=== PATIENT | female | born 1965 | race Caucasian/White ===

== ENCOUNTER → 2017-02-23 | Outpatient (CLI) | payer BC ==
--- NOTE | 2017-02-23 19:15 | US ---
EXAMINATION TYPE: US pelvis complete transvag DATE OF EXAM: 02/23/2017 COMPARISON: NONE CLINICAL HISTORY: Abnormal Uterine Bleeding N93.9. Ablation 12 years ago, menses started 3 months ago TECHNIQUE: Transvaginal (TV) and Transabdominal (TA) Date of LMP: unknown EXAM MEASUREMENTS: Uterus: 8.8 x 5.3 x 5.2 cm Endometrial Stripe: 0.5 cm Right Ovary: unable to visualize Left Ovary: 4.6 x 3.4 x 4.2 cm 1. Uterus: Anteverted heterogeneous, multiple Nabothian cysts, anechoic areas noted with largest = 2.1cm, complex areas noted with largest = 1.9cm 2. Endometrium: limited evaluation due to heterogeneous uterine tissue 3. Right Ovary: Obscured by overlying bowel gas 4. Left Ovary: septated cystic area = 3.9 x 3.3 x 2.9cm 5. Bilateral Adnexa: appears wnl 6. Posterior cul-de-sac: wnl Left ovary is abnormal with septated 3.9 cm cystic lesion. Uterus is markedly heterogeneous with sugg estion of underlying fibroids. Some fluid in the endometrial canal is felt present. No suspicious end ometrial thickening is seen. There is central endometrium there is 8 x 7 mm hyperechoic round area on image 44 could reflect polyp. IMPRESSION: 1. Suspicious 3.9 cm septated cyst or cystic lesion, cystic neoplasm cannot be excluded. Consider lab correlation. Consider pelvic MRI to further evaluate and characterize. Consider gynecology oncology consultation. 2. Markedly heterogeneous uterus, suspect intrauterine fibroids. This could also be further investiga walter or confirmed with pelvic MRI.
== END | disposition home or self-care (01) ==
LOC: RADUSWWP 15:34
PROVIDERS: ATTEND Family Medicine
DX: N93.9 Abnormal uterine and vaginal bleeding, unspecified (principal)
CPT/HCPCS: 76830; 76856

== ENCOUNTER → 2017-03-10 | Outpatient (CLI) | payer BC ==
[2017-03-17 14:25] LABS: Mis test requested (Blood) OVA-1
== END | disposition home or self-care (01) ==
LOC: MMGSC 09:24
PROVIDERS: ATTEND Obstetrics & Gynecology
DX: N85.8 Other specified noninflammatory disorders of uterus (principal)
CPT/HCPCS: 36415; 81503; 88305

== ENCOUNTER → 2018-01-21 | Outpatient (CLI) | payer BC ==
--- NOTE | 2018-01-25 12:15 | MM ---
Reason for exam: screening (asymptomatic). Last mammogram was performed 2 years and 7 months ago. History: Cancelled Left US Needle Biopsy of the left breast, January 27, 2007. Took hormonal contraceptives for 2 years beginning at age 34. Physical Findings: A clinical breast exam by your physician is recommended on an annual basis and results should be correlated with mammographic findings. MG 3D Screening Mammo W/Cad Bilateral CC and MLO view(s) were taken. Prior study comparison: June 19, 2015, bilateral MG 3d screening mammo w/cad. December 16, 2006, CAD bilateral diagnostic mammogram. The breast tissue is extremely dense which could obscure a lesion on mammography. No significant changes when compared with prior studies. ASSESSMENT: Negative, BI-RAD 1 RECOMMENDATION: Routine screening mammogram of both breasts in 1 year.
== END | disposition home or self-care (01) ==
LOC: RADMAMWWP 07:59
PROVIDERS: ATTEND Family Medicine
DX: Z12.31 Encounter for screening mammogram for malignant neoplasm of breast (principal)
CPT/HCPCS: 77063; 77067

== ENCOUNTER → 2019-03-02 | Outpatient (CLI) | payer BC ==
--- NOTE | 2019-03-06 10:24 | MM ---
Reason for exam: screening (asymptomatic). Last mammogram was performed 1 year and 1 month ago. History: Patient is postmenopausal. Cancelled Left US Needle Biopsy of the left breast, January 27, 2007. Took hormonal contraceptives for 2 years beginning at age 34. Took estrogen for 1 year beginning at age 52. Took progesterone for 1 year beginning at age 52. Physical Findings: A clinical breast exam by your physician is recommended on an annual basis and results should be correlated with mammographic findings. MG 3D Screening Mammo W/Cad Bilateral CC and MLO view(s) were taken. Prior study comparison: January 21, 2018, bilateral MG 3d screening mammo w/cad. June 19, 2015, bilateral MG 3d screening mammo w/cad. The breast tissue is heterogeneously dense. This may lower the sensitivity of mammography. No significant changes when compared with prior studies. ASSESSMENT: Benign, BI-RAD 2 RECOMMENDATION: Routine screening mammogram of both breasts in 1 year.
== END | disposition home or self-care (01) ==
LOC: RADMAMWWP 13:47
PROVIDERS: ATTEND Obstetrics & Gynecology
DX: Z12.31 Encounter for screening mammogram for malignant neoplasm of breast (principal)
CPT/HCPCS: 77063; 77067

== ENCOUNTER → 2020-09-04 | Outpatient (CLI) | payer BC ==
[2020-09-05 02:39] LABS: Follicle Stimulating Hormone 17.9 mIU/mL
== END | disposition home or self-care (01) ==
LOC: LABWHC1 14:34
PROVIDERS: ATTEND Obstetrics & Gynecology
DX: N95.1 Menopausal and female climacteric states (principal); R53.83 Other fatigue
CPT/HCPCS: 36415; 82670; 83001; 84144; 84403

== ENCOUNTER → 2020-10-07 | Outpatient (CLI) | payer BC ==
--- NOTE | 2020-10-08 12:04 | MM ---
Reason for exam: screening (asymptomatic). Last mammogram was performed 1 year and 7 months ago. History: Patient is postmenopausal. Cancelled Left US Needle Biopsy of the left breast, January 27, 2007. Took hormonal contraceptives for 2 years beginning at age 34. Taking estrogen for 1 year beginning at age 52. Taking progesterone for 1 year beginning at age 52. Taking other hormone for 1 year. Physical Findings: A clinical breast exam by your physician is recommended on an annual basis and results should be correlated with mammographic findings. MG 3D Screening Mammo W/Cad Bilateral CC and MLO view(s) were taken. Prior study comparison: March 02, 2019, bilateral MG 3d screening mammo w/cad. January 21, 2018, bilateral MG 3d screening mammo w/cad. The breast tissue is extremely dense which could obscure a lesion on mammography. No significant changes when compared with prior studies. ASSESSMENT: Benign, BI-RAD 2 RECOMMENDATION: Routine screening mammogram of both breasts in 1 year.
== END | disposition home or self-care (01) ==
LOC: RADMAMWWP 15:37
PROVIDERS: ATTEND Obstetrics & Gynecology
DX: Z12.31 Encounter for screening mammogram for malignant neoplasm of breast (principal); Z78.0 Asymptomatic menopausal state
CPT/HCPCS: 77063; 77067

== ENCOUNTER 2021-04-22 08:48 | Day surgery (SDC) | payer BC ==
[2021-04-18 11:34] VITALS: BMI 20.7
[~2021-04-22 08:48] MED LIST: LACTATED RINGERS 1,000 ML IV SCH; LIDOCAINE 1% (10MG/ML) FOR IV START INTRADERMA PRN
[2021-04-22 09:35] VITALS: RESP 16; TEMP 98.8
[2021-04-22] MEDS ORDERED: ONDANSETRON 4 MG/2 ML VIAL ONE (09:38)
[2021-04-22] MEDS ORDERED: DEXAMETHASONE SOD PHOSPHATE 4 MG/ML 1 ML VIAL IV ONE (09:40)
[2021-04-22] MEDS ORDERED: LIDOCAINE 1% INJ 10MG/ML (20 ML MDV) ONE (09:42)
[2021-04-22] MEDS ORDERED: PROPOFOL 10 MG/ML 20 ML VIAL IV ONE (09:42)
--- NOTE | 2021-04-22 09:46 | P.GSHP ---
History of Present Illness H&P Date: 04/22/21 Chief Complaint: Colon cancer screening Patient here today for colonoscopy. Last colonoscopy 5 years ago. Family history of colon cancer in her father and colon polyps in her mother. No bowel complaints. Past Medical History Additional Past Medical History / Comment(s): Hx. of Postmenopausal symptoms. History of Any Multi-Drug Resistant Organisms: None Reported Past Surgical History: Hernia Repair, Tonsillectomy, Tubal Ligation, Uterine Ablation Additional Past Surgical History / Comment(s): At age 6 hernia, Kidney donar, estrogen pellet insertion. Past Anesthesia/Blood Transfusion Reactions: Postoperative Nausea & Vomiting (PONV) Smoking Status: Never smoker - Past Family History Mother Family Medical History: No Reported History Father Family Medical History: Cancer Additional Family Medical History / Comment(s): Colon Medications and Allergies Home Medications Medication Instructions Recorded Confirmed Type Estrogen Pellet(Unknown Dose) 1 capsule ID Q3M 04/18/21 04/18/21 History Multivitamin [Multivitamins Adult 1 each PO DAILY 04/18/21 04/18/21 History Gummies] Progesterone, Micronized 200 mg PO HS 04/18/21 04/18/21 History [Progesterone] Allergies Allergy/AdvReac Type Severity Reaction Status Date / Time amoxicillin Allergy Rash/Hives Verified 04/22/21 09:17 cephalexin [From Keflex] Allergy Rash/Hives Verified 04/22/21 09:17 Surgical - Exam Vital Signs Temp Pulse Resp BP Pulse Ox 98.8 F 60 16 122/69 94 L 04/22/21 09:25 04/22/21 09:25 04/22/21 09:25 04/22/21 09:25 04/22/21 09:25 Physical exam: General: Well-developed, well-nourished HEENT: Normocephalic, sclerae nonicteric Abdomen: Nontender, nondistended Extremities: No edema Neuro: Alert and oriented Assessment and Plan (1) Colon cancer screening Narrative/Plan: Will proceed with colonoscopy at this time Current Visit: Yes Status: Acute Code(s): Z12.11 - ENCOUNTER FOR SCREENING FOR MALIGNANT NEOPLASM OF COLON SNOMED Code(s): 685050030
--- NOTE | 2021-04-22 10:15 | P.PCN ---
Date of Procedure: 04/22/21 Procedure(s) Performed: PREOPERATIVE DIAGNOSIS: Colon cancer screening POSTOPERATIVE DIAGNOSIS: Tortuous colon otherwise normal PROCEDURE: Colonoscopy ANESTHESIA: MAC SURGEON: Sixto Herman M.D. SPECIMENS: None ENDOSCOPIC PROCEDURE: The patient was placed on the endoscopy table in the left decubitus position. The Olympus colonoscope was inserted into the anus and passed under direct visualization to the base of the cecum. The appendiceal orifice was visualized. From that point the scope was slowly withdrawn inspecting all surfaces carefully. There were no neoplastic inflammatory or polypoid lesions throughout the cecum, ascending, transverse, descending, sigmoid and rectum. There was no visible diverticulosis noted. Digital rectal examination was normal. The patient was taken to the recovery room in stable condition per anesthesia guidelines. RECOMMENDATIONS: Resume diet. Follow colonoscopy 5 years.
[2021-04-22 10:56] VITALS: BP 124/71; PULSE 56
== END 2021-04-22 11:00 | disposition home or self-care (01) ==
LOC: ORWHC2ENDO 08:48
PROVIDERS: ATTEND Surgery
DX: Z12.11 Encounter for screening for malignant neoplasm of colon (principal); Z80.0 Family history of malignant neoplasm of digestive organs; Z88.1 Allergy status to other antibiotic agents
CPT/HCPCS: 45378; J1100; J2405; J2001; J2704

== ENCOUNTER → 2021-10-01 | Outpatient (CLI) | payer BC ==
[2021-10-01 15:28] LABS: Estradiol 41.1 pg/mL; Follicle Stimulating Hormone 30.2 mIU/mL
== END | disposition home or self-care (01) ==
LOC: LABWHC1 07:52
PROVIDERS: ATTEND Obstetrics & Gynecology
DX: N95.1 Menopausal and female climacteric states (principal)
CPT/HCPCS: 36415; 82670; 83001; 84144; 84403

== ENCOUNTER → 2022-10-14 | Outpatient (CLI) | payer BC ==
[2022-10-14 11:42] LABS: Estradiol 40.3 pg/mL; Follicle Stimulating Hormone 43.7 mIU/mL; T4, Free (Free Thyroxine) 1.08 ng/dL (0.800-1.800)
--- NOTE | 2022-10-15 08:23 | MM ---
Reason for Exam: Screening (asymptomatic). Last screening mammogram was performed 12 month(s) ago. Patient History: Menarche at age 14. First Full-Term at age 21. Postmenopausal. Currently using Estrogen, beginning at age 52 for 4 years. Currently using Progesterone, beginning at age 52 for 4 years. Hormonal Contraceptives for 2 years from age 34 until age 36. 01/27/2007, Cancelled Left US Needle Biopsy on the left side. Risk Values: Yessi 5 year model risk: 1.1%. NCI Lifetime model risk: 7.2%. Prior Study Comparison: 03/02/2019 Bilateral Screening Mammogram, [facility]. 10/07/2020 Bilateral Screening Mammogram, [facility]. 10/13/2021 Bilateral Screening Mammogram, [facility]. Tissue Density: The breast tissue is heterogeneously dense. This may lower the sensitivity of mammography. Findings: Analyzed By CAD. There is new or enlarging circumscribed 7 mm oval mass in the middle depth outer aspect roughly 3 to 4 cm from nipple. Overall Assessment: Incomplete: need additional imaging evaluation, BI-RAD 0 Management: Diagnostic Breast Ultrasound of the right breast. Targeted ultrasound right breast. Patient should continue monthly self-breast exams. A clinical breast exam by your physician is recommended on an annual basis. This exam should not preclude additional follow-up of suspicious palpable abnormalities. Note on Yessi scores and lifetime risk: 1. A Yessi score greater than 3% is considered moderate risk. If this is the case, consider specialist referral to assess eligibility for a risk reducing agent. 2. If overall lifetime risk for the development of breast cancer is 20% or higher, the patient may qualify for future screening with alternating mammogram and breast MRI. Electronically signed and approved by: Tejas Hirsch M.D.
== END | disposition home or self-care (01) ==
LOC: RADMAMWWP 06:42
PROVIDERS: ATTEND Obstetrics & Gynecology
DX: Z12.31 Encounter for screening mammogram for malignant neoplasm of breast (principal); E03.9 Hypothyroidism, unspecified; R53.83 Other fatigue; Z78.0 Asymptomatic menopausal state
CPT/HCPCS: 77063; 77067; 82670; 83001; 84144; 84439; 84443; 84481

== ENCOUNTER → 2022-10-23 | Outpatient (CLI) | payer BC ==
--- NOTE | 2022-10-23 09:56 | USB ---
Reason for Exam: Additional evaluation requested from abnormal screening. Patient History: Menarche at age 14. First Full-Term at age 21. Postmenopausal. Currently using Estrogen, beginning at age 52 for 4 years. Currently using Progesterone, beginning at age 52 for 4 years. Hormonal Contraceptives for 2 years from age 34 until age 36. 01/27/2007, Cancelled Left US Needle Biopsy on the left side. Risk Values: Yessi 5 year model risk: 1.1%. NCI Lifetime model risk: 7.2%. Technique: Method: Targeted. Prior Study Comparison: 08/03/2007 Left Diagnostic Ultrasound, [facility]. 10/07/2020 Bilateral Screening Mammogram, [facility]. 10/13/2021 Bilateral Screening Mammogram, [facility]. 10/14/2022 Bilateral MG 3D screening mammo w/cad, [facility]. Findings: The lateral section of the breast of the right breast, the axilla of the right breast and the retroareolar of the right breast were scanned. At 8:00 position 4 cm distance from nipple there is a 7 x 5 x 7 mm thin-walled cyst or cystic lesion within. The likely corresponding to the mammogram abnormality. Overall Assessment: Probably benign, BI-RAD 3 Management: Diagnostic Breast Ultrasound of the right breast in 6 months. Precautionary short-term follow-up advised. Results were given to the patient verbally at the time of exam. Electronically signed and approved by: Tejas Hirsch M.D.
== END | disposition home or self-care (01) ==
LOC: RADUSWWP 09:20
PROVIDERS: ATTEND Obstetrics & Gynecology
DX: R92.8 Other abnormal and inconclusive findings on diagnostic imaging of breast (principal); Z78.0 Asymptomatic menopausal state

== ENCOUNTER → 2023-06-22 | Outpatient (CLI) | payer BC ==
--- NOTE | 2023-06-22 10:05 | USB ---
Reason for Exam: Follow-up at short interval from prior study. Patient History: Menarche at age 14. First Full-Term at age 21. Postmenopausal. Currently using Estrogen, beginning at age 52 for 4 years. Currently using Progesterone, beginning at age 52 for 4 years. Hormonal Contraceptives for 2 years from age 34 until age 36. 01/27/2007, Cancelled Left US Needle Biopsy on the left side. Risk Values: Yessi 5 year model risk: 1.1%. NCI Lifetime model risk: 7.2%. Technique: Method: Targeted. Prior Study Comparison: 10/07/2020 Bilateral Screening Mammogram, [facility]. 10/13/2021 Bilateral Screening Mammogram, [facility]. 10/14/2022 Bilateral MG 3D screening mammo w/cad, [facility]. Findings: The lower outer quadrant of the right breast, the axilla of the right breast and the retroareolar of the right breast were scanned. Technique utilized:US breast limited RT Image; Ultrasound imaging of: Area of concern, retroareolar region and axilla. Cystic lesion within the right breast at 8:00 4 cm from the nipple. No suspicious masses. Overall Assessment: Benign, BI-RAD 2 Management: Screening Mammogram of both breasts in 1 year. A clinical breast exam by your physician is recommended on an annual basis and results should be correlated with mammographic findings. This exam should not preclude additional follow-up of suspicious palpable abnormalities. Results were given to the patient verbally at the time of exam. Electronically signed and approved by: Rasheed Angela DO
== END | disposition home or self-care (01) ==
LOC: RADUSWWP 09:19
PROVIDERS: ATTEND Obstetrics & Gynecology
DX: R92.8 Other abnormal and inconclusive findings on diagnostic imaging of breast (principal); Z78.0 Asymptomatic menopausal state

== ENCOUNTER → 2024-06-23 | Outpatient (CLI) | payer BC ==
--- NOTE | 2024-07-05 07:28 | MM ---
Reason for Exam: Screening (asymptomatic). Last mammogram was performed 1 year(s) and 8 month(s) ago. Patient History: Menarche at age 14. First Full-Term at age 21. Postmenopausal. Currently using Estrogen, beginning at age 52 for 4 years. Currently using Progesterone, beginning at age 52 for 4 years. Hormonal Contraceptives for 2 years from age 34 until age 36. 01/27/2007, Cancelled Left US Needle Biopsy on the left side. Risk Values: Yessi 5 year model risk: 1.1%. NCI Lifetime model risk: 7.1%. Prior Study Comparison: 10/07/2020 Bilateral Screening Mammogram, [facility]. 10/13/2021 Bilateral Screening Mammogram, [facility]. 10/14/2022 Bilateral MG 3D screening mammo w/cad, [facility]. Tissue Density: The breasts are extremely dense, which lowers the sensitivity of mammography. Findings: Analyzed By CAD. There are a few 9 appearing round calcifications in the right breast redemonstrated. There is no suspicious new group of microcalcifications or new suspicious mass in either breast. Overall Assessment: Benign, BI-RAD 2 Management: Screening Mammogram of both breasts in 1 year. Some advise bilateral breast ultrasound surveillance in patients with background dense tissue. Patient should continue monthly self-breast exams. A clinical breast exam by your physician is recommended on an annual basis. This exam should not preclude additional follow-up of suspicious palpable abnormalities. Note on Yessi scores and lifetime risk: 1. A Yessi score greater than 3% is considered moderate risk. If this is the case, consider specialist referral to assess eligibility for a risk reducing agent. 2. If overall lifetime risk for the development of breast cancer is 20% or higher, the patient may qualify for future screening with alternating mammogram and breast MRI. [facility], , 06/23/2024 8:42 AM. Electronically signed and approved by: Tejas Hirsch M.D.
== END | disposition home or self-care (01) ==
LOC: RADMAMWWP 08:24
PROVIDERS: ATTEND Obstetrics & Gynecology
DX: Z12.31 Encounter for screening mammogram for malignant neoplasm of breast (principal); R92.343 Mammographic extreme density, bilateral breasts; Z78.0 Asymptomatic menopausal state
CPT/HCPCS: 77063; 77067